=== PATIENT | male | born 1950 | race Caucasian/White ===

== ENCOUNTER 2017-03-24 21:37 | Emergency (ER) | payer MEDICARE ==
--- NOTE | 2017-03-25 07:20 | ER ---
ADMIT: 03/24/2017 RM/LOC: ER [facility] MR#: [id number] [facility] [id number] [place], [place] [id number] [address] [place] [address] Emergency Room Report SEX: M AGE: 66 : 1950 DATE: 03/24/2017 ADDENDUM: CHIEF COMPLAINT: Laceration to elbow. HISTORY OF PRESENT ILLNESS: This is a 66-year-old male, who was going down the step, he missed a step and hurt his left elbow. He initially went to [facility], they did an x-ray of his shoulder and elbow, disc was brought here to the ER. It is negative for any fractures over-read by Dr. Holt. A suture repair was done. Please see T-sheet for that information. CLINICAL IMPRESSION: Laceration to left elbow. DEBRA Dean / Juan Holt MD / modl JOB #: [id number] CC: Juan Holt MD, Attending Physician Aidan Warren MD, Family Physician
== END 2017-03-24 23:00 | disposition home or self-care (01) ==
LOC: ER 21:37
PROC: 0HQEXZZ Repair Left Lower Arm Skin, External Approach (ICD-10-PCS; principal; 2017-03-24)
DX: S51.012A Laceration without foreign body of left elbow, initial encounter (principal); J44.9 Chronic obstructive pulmonary disease, unspecified; Z23 Encounter for immunization; Z79.899 Other long term (current) drug therapy; W10.9XXA Fall (on) (from) unspecified stairs and steps, initial encounter; Y92.009 Unspecified place in unspecified non-institutional (private) residence as the place of occurrence of the external cause